=== PATIENT | male | born 1995 | race African-American/Black ===

== ENCOUNTER 2021-10-10 10:18 | Emergency (ER) | payer OTHER ==
[2021-10-10] MEDS ORDERED: KETOROLAC 30 MG/ML VIAL IM STA (10:45)
[2021-10-10 11:09] LABS: RAPID STREP SCREEN Negative (Negative)
[2021-10-10 11:57] LABS: B. PARAPERTUSSIS- RESP PCR PAN NOT DETECTED; B. PERTUSSIS- RESP PCR PANEL NOT DETECTED; C. PNEUMONIAE- RESP PCR PANEL NOT DETECTED; CORONAVIRUS 229E-RESP PCR NOT DETECTED; CORONAVIRUS HKU1-RESP PCR NOT DETECTED; CORONAVIRUS NL63-RESP PCR NOT DETECTED; CORONAVIRUS OC43-RESP PCR NOT DETECTED; HUMAN METAPNEUMOVIRUS NOT DETECTED; INFLUENZA A- RESP PCR PANEL NOT DETECTED; INFLUENZA B - RESP PCR PANEL NOT DETECTED; M. PNEUMONIAE- RESP PCR PANEL NOT DETECTED; PARAINFLUENZA VIRUS 1 NOT DETECTED; PARAINFLUENZA VIRUS 2 NOT DETECTED; PARAINFLUENZA VIRUS 3 NOT DETECTED; PARAINFLUENZA VIRUS 4 NOT DETECTED; RHINOVIRUS/ENTEROVIRUS NOT DETECTED; RSV- RESP PCR PANEL NOT DETECTED; SARS-CoV-2 -RESP PCR PANEL NOT DETECTED
--- NOTE | 2021-10-10 12:26 | ED Physician Documentation ---
PD HPI URI - Stated complaint Stated Complaint: L EAR/JAW PX - Chief complaint Chief Complaint: Heent - History obtained from History obtained from: Patient - History of Present Illness Timing - onset: Last night - Additional information Additional information: 26-year-old male with no reported past medical history presents for 1 day of left ear and burning left jaw pain. Patient states that it feels like his ear is underwater and his hearing is muffled. Pain is constant, does not radiate. Reports associated swelling underneath his left jaw and sore throat. Patient states that this is happened to him in the past, but he does not know what the diagnosis was. No medications taken at home for symptoms. Denies fevers, headache, nausea, vomiting, other complaints at this time. Review of Systems Ten Systems: 10 systems reviewed and negative Constitutional: denies: Fever, Chills, Myalgias, Fatigue, Weight Loss Eyes: denies: Loss of vision, Decreased vision, Photophobia, Discharge, Irritation Ears: reports: Loss of hearing, Ear pain. denies: Drainage/discharge, Tinnitus/ringing, Foreign body Nose: denies: Rhinorrhea / runny nose, Congestion, Foreign Body Throat: reports: Sore throat. denies: Dental pain / toothache, Oral lesions / sores, Swollen tonsils, Swallowed foreign body Cardiac: denies: Chest pain / pressure, Palpitations, Pedal edema Respiratory: denies: Dyspnea, Cough, Hemoptysis GI: denies: Abdominal Pain, Abdominal Swelling, Nausea PD PAST MEDICAL HISTORY - Past Medical History Past Medical History: No Respiratory: Asthma - Past Surgical History Past Surgical History: Yes HEENT: Tonsil/Adenoidectomy - Present Medications Home Medications: Ambulatory Orders Medication Instructions Recorded Confirmed Amox/Clav 875/125 [Augmentin] 1 each PO Q12H #10 tablet 10/10/21 - Allergies Allergies/Adverse Reactions: Allergies Allergy/AdvReac Type Severity Reaction Status Date / Time No Known Drug Allergies Allergy Verified 10/10/21 10:32 - Social History Does the pt smoke?: No Smoking Status: Never smoker Does the pt drink ETOH?: Yes Does the pt have substance abuse?: No - Immunizations Immunizations are current?: Yes PD ED PE NORMAL - Vitals Vital signs reviewed: Yes - General General: Alert and oriented X 3, No acute distress, Well developed/nourished - HEENT HEENT: Atraumatic, PERRL, EOMI, Moist mucous membranes, Dentition benign, Other (pharyngeal erythema without edema or exudates. L TM erythematous. No auricular tenderness) - Neck Neck: Supple, no meningeal sign, No bony TTP, Other (tender adenopathy L submandibular region) - Cardiac Cardiac: RRR, No murmur, Strong equal pulses - Respiratory Respiratory: No respiratory distress, Clear bilaterally - Abdomen Abdomen: Soft, Non tender, Non distended - Back Back: No CVA TTP, No spinal TTP - Derm Derm: Normal color, Warm and dry, No rash - Extremities Extremities: No deformity, No tenderness to palpate, Normal ROM s pain, No edema, No calf tenderness / cord - Neuro Neuro: Alert and oriented X 3, photography intern 2-12 intact, No motor deficit, No sensory deficit, Normal speech - Psych Psych: Normal mood, Normal affect Results - Vitals Vitals: Vital Signs - 24 hr 10/10/21 10/10/21 10:30 12:42 Temperature 36.5 C Heart Rate 86 80 Respiratory 16 12 Rate Blood Pressure 126/72 128/74 O2 Saturation 99 99 Oxygen O2 Source Room air - Labs Labs: Laboratory Tests 10/10/21 10/10/21 10:45 11:00 Nasal Adenovirus (PCR) NOT DETECTED Nasal B. parapertussis DNA (PCR) NOT DETECTED Nasal Coronavir 229E PCR NOT DETECTED Nasal Coronavir HKU1 PCR NOT DETECTED Nasal Coronavir NL63 PCR NOT DETECTED Nasal Coronavir OC43 PCR NOT DETECTED Nasal Enterovir/Rhinovir PCR NOT DETECTED Nasal Influenza B PCR NOT DETECTED Nasal Influenza A PCR NOT DETECTED Nasal Parainfluen 1 PCR NOT DETECTED Nasal Parainfluen 2 PCR NOT DETECTED Nasal Parainfluen 3 PCR NOT DETECTED Nasal Parainfluen 4 PCR NOT DETECTED Nasal RSV (PCR) NOT DETECTED Nasal B.pertussis DNA PCR NOT DETECTED Nasal C.pneumoniae (PCR) NOT DETECTED Philip Human Metapneumo PCR NOT DETECTED Nasal M.pneumoniae (PCR) NOT DETECTED Nasal SARS-CoV-2 (PCR) NOT DETECTED Group A Strep Rapid Negative PD MEDICAL DECISION MAKING - ED course ED course: 1 day of symptoms. Viral panel negative, strep swab negative. Will treat as early otitis media. Counseled to use OTC decongestants to help with ear pain. Departure - Departure Disposition: 01 Home, Self Care Clinical Impression: Otitis media Condition: Stable Instructions: ED Otitis Media Acute Adult Prescriptions: Amox/Clav 875/125 [Augmentin] 1 each PO Q12H #10 tablet Comments: Take all antibiotics as prescribed. Take turc-xab-xomjnar decongestants such as Sudafed or Mucinex to relieve any congestion as needed. Take Tylenol and Motrin as needed for fever. Discharge Date/Time: 10/10/21 12:43
[2021-10-10 12:43] VITALS: BP 128/74
== END 2021-10-10 12:43 | disposition home or self-care (01) ==
LOC: ED 10:18
DX: H66.92 Otitis media, unspecified, left ear (principal); Z20.822 Contact with and (suspected) exposure to COVID-19
CPT/HCPCS: 87070; 87430; 87633; 96372; 99282; 99283

== ENCOUNTER 2022-02-11 21:30 | Emergency (ER) | payer OTHER ==
[2022-02-11 21:43] VITALS: BP 106/69
[2022-02-11] MEDS ORDERED: IBUPROFEN 800 MG TABLET PO STA (22:06)
[2022-02-11] MEDS ORDERED: ACETAMINOPHEN 325 MG TABLET PO STA (22:06)
[2022-02-11] MEDS ORDERED: predniSONE 20 MG TABLET PO STA (22:06)
--- NOTE | 2022-02-11 22:38 | ED Physician Documentation ---
PD HPI URI - Stated complaint Stated Complaint: COUGH,HEAD PX,THROAT PX - Chief complaint Chief Complaint: Heent - History obtained from History obtained from: Patient - Additional information Additional information: The patient comes to the emergency department with chief complaint of cough, rhinorrhea, and sore throat. He states has been going on for the last few days and he has felt miserable. The patient states he is actually the cough for a few weeks, and it seems to wax and wane but has never completely gotten better. He is tried lots of different cough preparations but nothing seems to help much. The patient is not sure exactly what illness he had initially, but it seemed like a cold. He denies fevers or chills no. No shortness of breath. He states the cough is keeping him up at night. Review of Systems Ten Systems: 10 systems reviewed and negative Constitutional: reports: Reviewed and negative Eyes: reports: Reviewed and negative Ears: reports: Reviewed and negative Nose: reports: Rhinorrhea / runny nose, Congestion Throat: reports: Reviewed and negative Cardiac: reports: Reviewed and negative Respiratory: reports: Cough GI: reports: Reviewed and negative : reports: Reviewed and negative Skin: reports: Reviewed and negative Musculoskeletal: reports: Reviewed and negative Neurologic: reports: Reviewed and negative Psychiatric: reports: Reviewed and negative Endocrine: reports: Reviewed and negative Immunocompromised: reports: Reviewed and negative PD PAST MEDICAL HISTORY - Past Medical History Past Medical History: Yes Cardiovascular: None Respiratory: Asthma Neuro: None Endocrine/Autoimmune: None GI: None : None HEENT: None Psych: None Musculoskeletal: None Derm: None - Past Surgical History Past Surgical History: Yes HEENT: Tonsil/Adenoidectomy - Present Medications Home Medications: Ambulatory Orders Medication Instructions Recorded Confirmed Acetaminophen/Cod 300/30 [Tylenol 2 each PO Q4-6H PRN #20 tablet 02/11/22 #3] Benzonatate [Tessalon] 200 mg PO TID PRN #30 cap 02/11/22 predniSONE [Deltasone] 40 mg PO DAILY 5 Days #10 tablet 02/11/22 - Allergies Allergies/Adverse Reactions: Allergies Allergy/AdvReac Type Severity Reaction Status Date / Time No Known Drug Allergies Allergy Verified 02/11/22 21:43 - Social History Does the pt smoke?: No Smoking Status: Never smoker Does the pt drink ETOH?: Yes Does the pt have substance abuse?: No - Immunizations Immunizations are current?: Yes - POLST Patient has POLST: No PD ED PE NORMAL - Vitals Vital signs reviewed: Yes - General General: Alert and oriented X 3, No acute distress, Well developed/nourished - HEENT HEENT: Atraumatic, PERRL, EOMI, Moist mucous membranes - Neck Neck: Supple, no meningeal sign - Cardiac Cardiac: RRR, No murmur, Strong equal pulses - Respiratory Respiratory: No respiratory distress, Clear bilaterally - Abdomen Abdomen: Soft, Non tender, Non distended - Derm Derm: Normal color, Warm and dry, No rash - Extremities Extremities: No deformity, No edema - Neuro Neuro: Alert and oriented X 3, senior center director 2-12 intact, Normal speech - Psych Psych: Normal mood, Normal affect Results - Vitals Vitals: Oxygen O2 Source Room air - Labs Labs: Microbiology 02/11/22 22:48 Group A Strep Throat Culture - Final Throat MIXED OROPHARYNGEAL ERNESTINA PRESENT. NO BETA STREP PRESENT IN CULTURE. Laboratory Tests 02/11/22 22:48 Group A Strep Rapid Negative - Rads (name of study) Chest x-ray Radiology: Final report received, EMP read indepedently, See rad report (Negative) PD MEDICAL DECISION MAKING - ED course Complexity details: reviewed results, re-evaluated patient, considered differential, d/w patient ED course: Patient had a negative chest x-ray. I discussed with him that he most likely has one of the many viruses that are going around right now. He may have had a succession of viral illnesses which caused it to seem as though his cough just would never go away. At this point in time, I have advised symptomatic management, as the patient does not appear to have a bacterial process going on, and antibiotics are unlikely to be helpful. We have discussed the usual indications for return. Departure - Departure Disposition: 01 Home, Self Care Clinical Impression: URI (upper respiratory infection) Qualifiers: URI type: unspecified viral URI Qualified Code(s): J06.9 - Acute upper r espiratory infection, unspecified Condition: Stable Instructions: ED URI Viral Prescriptions: predniSONE [Deltasone] 40 mg PO DAILY 5 Days #10 tablet Benzonatate [Tessalon] 200 mg PO TID PRN #30 cap PRN Reason: Cough Acetaminophen/Cod 300/30 [Tylenol #3] 2 each PO Q4-6H PRN #20 tablet PRN Reason: Cough Comments: Your chest x-ray looks goodno pneumonia. You may have caught successive viral infections which have kept her cough going, or you may does have some residual inflammation that is self-perpetuating in a vicious cycle. The ongoing cough can cause nerve irritation and muscle spasm/pain which could give you a sense of pain and throbbing in your head that you have been having. Prescriptions for medications for your symptoms been electronically transmitted to the [facility] pharmacy in [place], at your request. [place] Forms: Activity restrictions Discharge Date/Time: 02/11/22 22:55
--- NOTE | 2022-02-11 23:00 | XRAY Report ---
PROCEDURE: Chest 1 View X-Ray INDICATIONS: cough TECHNIQUE: One view of the chest was acquired. COMPARISON: None. FINDINGS: Surgical changes and devices: None. Lungs and pleura: No pleural effusions or pneumothorax. Lungs are clear. Mediastinum: Mediastinal contours appear normal. Heart size is normal. Bones and chest wall: No suspicious bony lesions. Overlying soft tissues appear unremarkable. IMPRESSION: 1. No acute cardiopulmonary disease. Reviewed by: Kain Heredia MD on 02/11/2022 10:58 PM [facility] Approved by: Kain Heredia MD on 02/11/2022 10:58 PM [facility] Station ID: [id number]
[2022-02-11 23:03] LABS: RAPID STREP SCREEN Negative (Negative)
== END 2022-02-11 22:55 | disposition home or self-care (01) ==
LOC: ED 21:30
DX: J06.9 Acute upper respiratory infection, unspecified (principal)
CPT/HCPCS: 71045; 87070; 87430; 99283; A9270; J7512

== ENCOUNTER 2022-04-28 13:33 | Emergency (ER) | payer OTHER ==
--- NOTE | 2022-04-28 14:14 | XRAY Report ---
PROCEDURE: Hand 3 View RT INDICATIONS: hand inj TECHNIQUE: 3 views of the hand(s) acquired. COMPARISON: None FINDINGS: Bones: No fractures or dislocations. No suspicious bony lesions. Soft tissues: No suspicious soft tissue calcifications. IMPRESSION: Hand plain films within normal limits. Reviewed by: Cliff Alaniz MD on 04/28/2022 1:13 PM [facility] Approved by: Cliff Alaniz MD on 04/28/2022 1:13 PM [facility] Station ID: [id number]
--- NOTE | 2022-04-28 15:47 | ED Physician Documentation ---
PD HPI UPPER EXT INJURY - Stated complaint Stated Complaint: R HAND INJ - Chief complaint Chief Complaint: Trauma Ext - History obtained from History obtained from: Patient, Family - History of Present Illness Location: Right, Wrist, Hand Timing - details: Gradual onset Pain level max: 4 Pain level now: 3 - Additonal information Additional information: R hand and wrist pain x 10 days. States carries heavy objects in the [place]. Does not recall any specific injury. Has not taken anything for pain. Patient is right handed. Worse with moving, better with rest. Review of Systems Constitutional: denies: Fever GI: denies: Vomiting Neurologic: denies: Numbness PD PAST MEDICAL HISTORY - Past Medical History Cardiovascular: None Respiratory: Asthma Neuro: None Endocrine/Autoimmune: None GI: None : None HEENT: None Psych: None Musculoskeletal: None Derm: None - Past Surgical History Past Surgical History: Yes HEENT: Tonsil/Adenoidectomy - Present Medications Home Medications: Ambulatory Orders Medication Instructions Recorded Confirmed Acetaminophen/Cod 300/30 [Tylenol 2 each PO Q4-6H PRN #20 tablet 02/11/22 #3] Benzonatate [Tessalon] 200 mg PO TID PRN #30 cap 02/11/22 predniSONE [Deltasone] 40 mg PO DAILY 5 Days #10 tablet 02/11/22 - Allergies Allergies/Adverse Reactions: Allergies Allergy/AdvReac Type Severity Reaction Status Date / Time No Known Drug Allergies Allergy Verified 04/28/22 13:47 - Social History Does the pt smoke?: No Smoking Status: Never smoker Does the pt drink ETOH?: Yes Does the pt have substance abuse?: No - Immunizations Immunizations are current?: Yes - POLST Patient has POLST: No PD ED PE NORMAL - Vitals Vital signs reviewed: Yes - General General: Alert and oriented X 3, No acute distress - Derm Derm: Warm and dry - Extremities Extremities: Other (Mild tenderness to palpation over the dorsum of the right hand, near the base of the fourth and fifth metacarpals. No snuffbox tenderness. Full range of motion of the wrist, fingers and hand. Neurovascular intact. Otherwise normal exam.) - Neuro Neuro: Alert and oriented X 3 - Psych Psych: Normal mood, Normal affect Results - Vitals Vitals: Vital Signs - 24 hr 04/28/22 04/28/22 13:45 16:14 Temperature 36.8 C 36.9 C Heart Rate 76 85 Respiratory 14 15 Rate Blood Pressure 113/64 113/71 O2 Saturation 98 99 Oxygen O2 Source Room air - Rads (name of study) Right hand x-ray Radiology: Final report received, See rad report PD Medical Decision Making - ED course Complexity details: considered differential, d/w patient ED course: No acute findings on x-ray. Likely has a strain/sprain of the right hand/wrist. We will place in a Velcro splint for comfort. Continue Motrin and Tylenol at home. We will have him follow-up with his doctor for further care. Patient counseled regarding signs and symptoms for which I believe and urgent re- evaluation would be necessary. Patient with good understanding of and agreement to plan and is comfortable going home at this time This document was made in part using voice recognition software. While efforts are made to proofread this document, sound alike and grammatical errors may occur. Departure - Departure Disposition: 01 Home, Self Care Clinical Impression: Wrist strain Qualifiers: Encounter type: initial encounter Laterality: right Qualified Code(s): S66.911A - Strain of unspecified muscle, fascia and tendon at wrist and hand level, right hand, initial encounter Condition: Good Instructions: ED Sprain Wrist Follow-Up: your,doctor in 1 week [Other] Comments: You can use Motrin or Tylenol as needed for pain. Please follow-up with your doctor for further care. Wear the splint as needed at home. Continue to gently stretch the hand as well. Your x-ray does not show any acute abnormalities today. Discharge Date/Time: 04/28/22 16:15
[2022-04-28 16:15] VITALS: BP 113/71
== END 2022-04-28 16:15 | disposition home or self-care (01) ==
LOC: ED 13:33
DX: S66.911A Strain of unspecified muscle, fascia and tendon at wrist and hand level, right hand, initial encounter (principal); X50.0XXA Overexertion from strenuous movement or load, initial encounter; Y93.9 Activity, unspecified; Y99.1 Military activity
CPT/HCPCS: 99283

== ENCOUNTER 2023-01-15 02:28 | Emergency (ER) | payer OTHER ==
--- NOTE | 2023-01-15 03:15 | ED Physician Documentation ---
PD HPI DYSPNEA - Stated complaint Stated Complaint: SOA - Chief complaint Chief Complaint: Resp - History obtained from History obtained from: Patient - Additional information Additional information: HPI from patient. Patient c/o left anterior chest pain, onset one hour GLUE COOK while in bed at rest. No inciting, exacerbating, nor ameliorating factors. Pain woke patient from sleep. Denies h/o similar symptoms Mild pleuritic component, otherwise no exacerbating nor ameliorating factors. Review of Systems Constitutional: reports: Reviewed and negative Cardiac: reports: Chest pain / pressure. denies: Palpitations, Pedal edema, Calf pain Respiratory: reports: Dyspnea. denies: Cough, Hemoptysis, Wheezing GI: reports: Reviewed and negative Musculoskeletal: denies: Extremity swelling PD PAST MEDICAL HISTORY - Past Medical History Past Medical History: Yes Cardiovascular: None Respiratory: Asthma Neuro: None Endocrine/Autoimmune: None GI: None : None HEENT: None Psych: None Musculoskeletal: None Derm: None - Past Surgical History Past Surgical History: Yes HEENT: Tonsil/Adenoidectomy - Present Medications Home Medications: Ambulatory Orders Medication Instructions Recorded Confirmed Acetaminophen/Cod 300/30 [Tylenol 2 each PO Q4-6H PRN #20 tablet 02/11/22 #3] Benzonatate [Tessalon] 200 mg PO TID PRN #30 cap 02/11/22 predniSONE [Deltasone] 40 mg PO DAILY 5 Days #10 tablet 02/11/22 - Allergies Allergies/Adverse Reactions: Allergies Allergy/AdvReac Type Severity Reaction Status Date / Time No Known Drug Allergies Allergy Verified 04/28/22 13:47 - Social History Does the pt smoke?: No Smoking Status: Never smoker Does the pt drink ETOH?: Yes Does the pt have substance abuse?: No - Immunizations Immunizations are current?: Yes - POLST Patient has POLST: No PD ED PE NORMAL - Vitals Vital signs reviewed: Yes - General General: Alert and oriented X 3, No acute distress, Well developed/nourished - Neck Neck: Supple, no meningeal sign, No JVD - Cardiac Cardiac: RRR, No murmur, No gallop, No rub - Respiratory Respiratory: No respiratory distress, Clear bilaterally - Extremities Extremities: No edema Results - Vitals Vitals: Oxygen O2 Source Room air - EKG (time done) No standard instances EKG releavant findings:: EKG personally interpreted by author of this note. Relevant findings are: Rate: Rate (enter#) (74) Rhythm: NSR [place]: Normal Intervals: Normal IN QRS: Normal Ischemia: ST elevation c/w repol (V2-V6) - Labs Labs: Laboratory Tests 01/15/23 01/15/23 04:01 04:01 WBC 5.8 RBC 4.78 Hgb 15.3 Hct 46.1 MCV 96.4 H MCH 32.0 H MCHC 33.2 RDW 12.0 Plt Count 271 MPV 9.2 Neut # (Auto) 2.7 Lymph # (Auto) 2.3 [place] # (Auto) 0.4 Eos # (Auto) 0.3 Baso # (Auto) 0.0 Absolute Nucleated RBC 0.00 Nucleated RBC % 0.0 Sodium 140 Potassium 3.8 Chloride 104 Carbon Dioxide 30 Anion Gap 6.0 BUN 14 Creatinine 0.8 Estimated GFR (MDRD) 141 Glucose 88 Calcium 9.6 Total Bilirubin 0.9 AST 14 ALT 13 Alkaline Phosphatase 69 Troponin I High Sens 2.3 Total Protein 6.9 Albumin 4.4 Globulin 2.5 Albumin/Globulin Ratio 1.8 Lipase 62 - Rads (name of study) cxr Relevant Findings:: Prelim report reviewed, See rad report CTA chest Relevant Findings:: Prelim report reviewed, See rad report PD Medical Decision Making - ED course Complexity details: reviewed results, re-evaluated patient, considered differential, d/w patient ED course: Normal CBC (except for elevated MCH, MCV), normal ER abdominal panel, normal high-sensitivity troponin. Diffuse ST elevations on EKG are suggestive of early repolarization. Normal chest x-ray. On reevaluation, I discussed these results with the patient. He is complaining of worsening, pleuritic, left-sided chest pain. At times, the pain radiates to his upper back. CTA of the chest is then undertaken due to suspicion for PE, aortic dissection (though both are of low likelihood). Fortunately, the CTA of the chest is unremarkable. I then reevaluated the patient and discussed the results of the CT chest with the patient. He is now reporting feeling much improved without any intervention and is comfortable with D/C home. Return precautions are discussed, the etiology of the patient's symptoms is not apparent at this time. I instructed the patient to contact his primary care provider to arrange for next available appointment for reevaluation. Departure - Departure Disposition: 01 Home, Self Care Clinical Impression: Chest pain Qualifiers: Chest pain type: chest pain on breathing Qualified Code(s): R07.1 - Chest pain on breathing Condition: Good Instructions: ED Chest Pain Atypical Unkn Cause Comments: There were no concerning or diagnostic findings on tonight's tests, including the blood test, EKG, chest x-ray, and the CT scan of your chest. These are all very reassuring results but the cause of your pain remains unclear at this time. Contact your primary care provider's office this morning when they open to arrange for next available appointment for reevaluation. Forms: PCP List, Activity restrictions Discharge Date/Time: 01/15/23 06:54
[2023-01-15 04:13] LABS: BASOPHILS % (AUTO) 0.7 %; EOSINOPHILS # (AUTO) 0.3 10^3/uL (0.0-0.7); EOSINOPHILS % (AUTO) 5.7 %; HCT - HEMATOCRIT 46.1 % (42.0-52.0); HGB - HEMOGLOBIN 15.3 g/dL (14.0-18.0); LYMPHOCYTES # (AUTO) 2.3 10^3/uL (1.5-3.5); LYMPHOCYTES % (AUTO) 40.3 %; MEAN CORPUSCULAR HGB CONC 33.2 g/dL (32.0-36.0); MEAN CORPUSCULAR VOLUME 96.4 fL (80.0-94.0); MEAN PLATELET VOLUME 9.2 fL (7.4-11.4); MONOCYTES # (AUTO) 0.4 10^3/uL (0.0-1.0); MONOCYTES % (AUTO) 6.8 %; NEUTROPHILS # (AUTO) 2.7 10^3/uL (1.5-6.6); NEUTROPHILS % (AUTO) 46.3 %; PLT - PLATELET COUNT 271 10^3/uL (130-450); RED BLOOD COUNT 4.78 10^6/uL (4.70-6.10); WHITE BLOOD COUNT 5.8 x10^3/uL (4.8-10.8)
[2023-01-15 04:15] VITALS: O2SAT 100
[2023-01-15 04:21] LABS: ALBUMIN 4.4 g/dL (3.2-5.5); ALBUMIN/GLOBULIN RATIO 1.8 (1.0-2.2); BILIRUBIN,TOTAL 0.9 mg/dL (0.2-1.0); CALCIUM 9.6 mg/dL (8.5-10.3); CREATININE 0.8 mg/dL (0.6-1.3); POTASSIUM 3.8 mmol/L (3.5-4.5); TOTAL PROTEIN 6.9 g/dL (6.4-8.9)
[2023-01-15 04:31] LABS: TROPONIN I HIGH SENSITIVITY 2.3 ng/L (2.3-19.7)
[2023-01-15] MEDS ORDERED: iohexoL-300 100 ML VIAL IVP ONE (06:46)
[2023-01-15 06:55] VITALS: BP 117/83
--- NOTE | 2023-01-15 08:26 | CT Report ---
PROCEDURE: ANGIO CHEST W/WO INDICATIONS: pleuritic left chest pain CONTRAST: Omni 300 80ml TECHNIQUE: After the administration of intravenous contrast, 2 mm axial images were acquired from the pulmonary apices to the posterior costophrenic angles during the arterial phase. In addition, 1 mm lung kernel and 5 mm soft tissue kernel reconstructions were performed. 3-dimensional coronal oblique maximum int ensity projection (MIP) reformats, 8 mm axial MIP, and 5 mm coronal and sagittal MPR reformats were t hen performed through the thorax. For radiation dose reduction, the following was used: automated exp osure control, adjustment of mA and/or kV according to patient size. COMPARISON: None FINDINGS: Image quality: Excellent. Large vessels: No filling defects within the opacified pulmonary arteries, accounting for motion and contrast timing. No evidence of acute aortic syndrome or aortic aneurysm. Lungs and pleura: No consolidation. No pleural effusions. No pneumothorax. No suspicious pulmonary n odules which require follow up. Mediastinum: Heart size is normal. No pericardial effusion. No large vessel abnormality. No mediastin al adenopathy by size criteria. Chest wall and lower neck: Thyroid is unremarkable. No axillary or supraclavicular adenopathy by size . Bones: No aggressive osseous abnormality. Upper Abdomen: Unremarkable. IMPRESSION: No pulmonary embolus. Reviewed by: Sae Claros on 01/15/2023 8:25 AM [facility] Approved by: Sae Claros on 01/15/2023 8:25 AM [facility] Station ID: [id number]
--- NOTE | 2023-01-15 08:26 | XRAY Report ---
PROCEDURE: Chest 1 View X-Ray INDICATIONS: chest pain TECHNIQUE: One view of the chest was acquired. COMPARISON: None. FINDINGS: Surgical changes and devices: None. Lungs and pleura: No pleural effusions or pneumothorax. Lungs are clear. Mediastinum: Mediastinal contours appear normal. Heart size is normal. Bones and chest wall: No suspicious bony lesions. Overlying soft tissues appear unremarkable. IMPRESSION: No acute cardiopulmonary process. Findings are concordant with preliminary interpretation provided by [facility]. Reviewed by: Sae Claros on 01/15/2023 8:25 AM [facility] Approved by: Sae Claros on 01/15/2023 8:25 AM [facility] Station ID: [id number]
== END 2023-01-15 06:54 | disposition home or self-care (01) ==
LOC: ED 02:28
DX: R07.1 Chest pain on breathing (principal)
CPT/HCPCS: 36415; 71045; 71275; 80053; 83690; 84484; 85025; 93005; 99283; 99284; Q9967